=== PATIENT | female | born 1970 | race African-American/Black ===

== ENCOUNTER 2017-08-22 12:11 | Emergency (ER) | payer OTHER ==
[2017-08-22 12:45] VITALS: TEMP 99.2; BMI 28.0
--- NOTE | 2017-08-22 13:58 | PDOC ---
Attending Attestation - Resident Resident Name: Alpa Evangelista - HPI HPI: 08/23/17 18:49 Pt presents to the ED complaining of a typical sickle cell crisis with bilateral arm pain. also complains of fever that she states has now resolved. Denies chest pain, shortness of breat, nausea, vomiting or abdominal pain. - Physicial Exam PE: 08/23/17 18:53 Agree with resident exam. PAtient is well appearing and in no acute distress. Lungs are clear. - Medical Decision Making 08/23/17 18:53 Pt presents to the ED complaining of typical sickle cell crisis. Requested demerol. Informed about the high side effect profile of demerol, but refused because " only demerol works". Plan was to check labs to rule out aplastic crisis, but patient refused. understood the risk of severe anemia and aplastic crisis. patient promises to return to the ed for new or worsening symptoms.
--- NOTE | 2017-08-22 14:00 | PDOC ---
History of Present Illness - General Chief Complaint: Pain Stated Complaint: SICKLE CELL CRISIS Time Seen by Provider: 08/22/17 13:58 History Source: Patient - History of Present Illness Initial Comments: 08/22/17 20:53 Patient is a 47 y.o. female with a PMH of SCD who presents to our ED c/o B/L RUE pain consistent with her sickle cell pain. Patient states she is allergic to Morphine ("my throat closes") and she takes Demerol (75 mg) and Benadryl (50 mg) for her pain. Patient denies any chest pain, dyspnea. Past History - Past Medical History Allergies/Adverse Reactions: Allergies Allergy/AdvReac Type Severity Reaction Status Date / Time morphine Allergy Severe ANAPHYLAXIS, Verified 07/03/15 09:14 HIVES Home Medications: Ambulatory Orders FENTANYL 100mcg PATCH [DURAGESIC 100mcg PATCH -] 200 mg TD Q72H 02/19/15 Oxycodone HCl/Acetaminophen [Percocet 5-325 mg Tablet] 1 - 2 tab PO Q6H PRN #12 tab 02/26/15 Docusate Sodium [Colace -] 100 mg PO BID PRN #60 capsule 04/20/15 Cephalexin [Keflex] 500 mg PO BID #14 capsule 07/03/15 Anemia: Yes (SICKLE CELL) Asthma: No Cancer: No Cardiac Disorders: No CVA: No COPD: No CHF: No DVT: No Dementia: No Diabetes: No GI Disorders: No Disorders: No HTN: No Hypercholesterolemia: No Liver Disease: No Seizures: No Thyroid Disease: No - Surgical History Abdominal Surgery: Yes Cholecystectomy: Yes - Family Disease History Family Disease History: Other: Mother (Sickle cell) - Immunization History Td Vaccination: Yes TDAP Vaccination: Yes Immunization Up to Date: Yes - Suicide/Smoking/Psychosocial Hx Smoking Status: No Smoking History: Never smoked Years of Tobacco Use: 0 Have you smoked in the past 12 months: No Number of Cigarettes Smoked Daily: 0 Cigars Per Day: 0 Information on smoking cessation initiated: No Hx Alcohol Use: No Drug/Substance Use Hx: No Substance Use Type: None Hx Substance Use Treatment: No Review of Systems - Review of Systems Constitutional: No: Chills, Fever Respiratory: No: Shortness of Breath Cardiac (ROS): No: Chest Pain ABD/GI: No: Constipated, Diarrhea, Nausea, Vomiting, Abdominal cramping Musculoskeletal: Yes: Muscle Pain *Physical Exam - Vital Signs Last Vital Signs Temp Pulse Resp BP Pulse Ox 99.2 F 106 H 18 124/70 100 08/22/17 12:40 08/22/17 12:40 08/22/17 12:40 08/22/17 12:40 08/22/17 12:40 - Physical Exam General Appearance: Yes: Nourished, Appropriately Dressed HEENT: positive: EOMI, MICHEAL, Other (edentulous w/cracked teeth; oral (likely Herpetic) lesion ) Neck: positive: Trachea midline, Supple Respiratory/Chest: positive: Lungs Clear Cardiovascular: positive: S1, S2 Medical Decision Making - Medical Decision Making 08/22/17 20:55 Patient is a 47 y.o. female who presents with sickle cell pain. Afebrile w/ no cough/chest pain/dyspnea - low clinical suspicion for acute chest. Of note patient has no sickle cell screen in our EMR. Patient refuses lab work and is counseled that she should stay for full evaluation including determination of whether patient is in active crisis. Patient counseled on risks of leaving prior to full evaluation and discharged home with return precautions. *DC/Admit/Observation/Transfer Diagnosis at time of Disposition: Sickle cell anemia with pain - Discharge Dispostion Disposition: HOME Condition at time of disposition: Good Admit: No - Referrals - Patient Instructions Printed Discharge Instructions: DI for Sickle Cell Anemia, Pain Crisis -- Adult Additional Instructions: Please return to the Emergency Department for any new/worsening/concerning symptoms. - Post Discharge Activity
[2017-08-22] MEDS ORDERED: MEPERIDINE HCL CARPU-JECT 75 MG/1 ML DISP.SYRIN IM ONE ×2 (14:06→14:14)
[2017-08-22] MEDS ORDERED: MEPERIDINE HCL CARPU-JECT 50 MG/1 ML DISP.SYRIN ONE (14:25)
[2017-08-22 15:36] VITALS: BP 120/70; PULSE 80
== END 2017-08-22 15:27 | disposition home or self-care (01) ==
LOC: JER 12:11
PROC: 3E023NZ Introduction of Analgesics, Hypnotics, Sedatives into Muscle, Percutaneous Approach (ICD-10-PCS; principal; 2017-08-22)
PROC: 3E023GC Introduction of Other Therapeutic Substance into Muscle, Percutaneous Approach (ICD-10-PCS; 2017-08-22)
DX: D57.00 Hb-SS disease with crisis, unspecified (principal)
CPT/HCPCS: 96372; 99282-25

== ENCOUNTER 2017-10-26 14:34 | Emergency (ER) | payer OTHER ==
[2017-10-26 15:03] VITALS: BP 124/90; PULSE 73; TEMP 98.7; BMI 27.0
--- NOTE | 2017-10-26 15:34 | PDOC ---
History of Present Illness - History of Present Illness Initial Comments: 10/26/17 16:11 Patient is a 47F, with PMHx significant for sickle cell anemia, who presents for sickle cell crisis. Patient states that around 4 am she began experiencing pain in her extremities including her shoulder, elbow, hip, and knee joints. She states that her symptoms are typical of her sickle cell pain crsis. She describes her pain as sharp, constant, rates 9/10. She states she took Oxycodone 30 mg 3 tablets with little relief. She states Demerol and Benadryl has helped her before. She also reported 2 days of associated burning when she urinates as well as foul smelling urining .She states she had some mild abdominal pain yesterday but it has since resolved. She denies any chest pain, shortness of breath, headache, vision changes, numbness/tingling/weakness, abdominal pain, nausea, vomiting, blood in urine or stool. She states she is up- to-date with her pneumoia vaccine, has not had her flu shot. Social Hx: Former smoker Surgical Hx: cholecystectomy, left hip replacement - 2004 Allergies: morphine (anaphylaxis, hives <Yola Rede - Last Filed: 10/26/17 16:11> <Emery Goodson - Last Filed: 10/26/17 16:23> <Lupe Guidry - Last Filed: 10/26/17 19:13> - General Chief Complaint: Pain Stated Complaint: SICKLE CELL Time Seen by Provider: 10/26/17 14:39 Past History <Yola Reed - Last Filed: 10/26/17 16:11> - Past Medical History Anemia: Yes (SICKLE CELL) Asthma: No Cancer: No Cardiac Disorders: No CVA: No COPD: No CHF: No DVT: No Dementia: No Diabetes: No GI Disorders: No Disorders: No HTN: No Hypercholesterolemia: No Liver Disease: No Seizures: No Thyroid Disease: No - Surgical History Abdominal Surgery: Yes Cholecystectomy: Yes - Family Disease History Family Disease History: Other: Mother (Sickle cell) - Immunization History Td Vaccination: Yes TDAP Vaccination: Yes Immunization Up to Date: Yes - Suicide/Smoking/Psychosocial Hx Smoking Status: No Smoking History: Never smoked Years of Tobacco Use: 0 Have you smoked in the past 12 months: No Number of Cigarettes Smoked Daily: 0 Cigars Per Day: 0 Information on smoking cessation initiated: No Hx Alcohol Use: No Drug/Substance Use Hx: No Substance Use Type: None Hx Substance Use Treatment: No <KelleeEmery kelley - Last Filed: 10/26/17 16:23> <ChaoLupe Valenzuela - Last Filed: 10/26/17 19:13> - Past Medical History Allergies/Adverse Reactions: Allergies Allergy/AdvReac Type Severity Reaction Status Date / Time morphine Allergy Severe ANAPHYLAXIS, Verified 07/03/15 09:14 HIVES Home Medications: Ambulatory Orders FENTANYL 100mcg PATCH [DURAGESIC 100mcg PATCH -] 200 mg TD Q72H 02/19/15 Oxycodone HCl/Acetaminophen [Percocet 5-325 mg Tablet] 1 - 2 tab PO Q6H PRN #12 tab 02/26/15 Docusate Sodium [Colace -] 100 mg PO BID PRN #60 capsule 04/20/15 Cephalexin [Keflex] 500 mg PO BID #14 capsule 07/03/15 Review of Systems - Review of Systems Comments:: 10/26/17 16:11 CONSTITUTIONAL: No reported: Fever, Chills, Diaphoresis, Generalized Weakness, Malaise, Loss of Appetite HEENT: No reported: Rhinorrhea, Nasal Congestion, Throat Pain, Throat Swelling, Difficulty Swallowing, Mouth Swelling, Ear Pain, Eye Pain, Visual Changes CARDIOVASCULAR: No reported: Chest Pain, Syncope, Palpitations, Irregular Heart Rate, Lightheadedness, Peripheral Edema RESPIRATORY: No reported: Cough, Shortness of Breath, SOB with Exertion, Orthopnea, Wheezing , Stridor, Hemoptysis GASTROINTESTINAL: Reported: abdominal pain (yesterday- resolved) No reported: Abdominal Distension, Nausea, Vomiting, Diarrhea, Constipation, Melena, Hematochezia GENITOURINARY: Reported: dysuria, foul smelling urine No reported: Frequency, Urgency, Hesitancy, Flank Pain, Genital Pain MUSCULOSKELETAL: Reported: joint pain (b/l knee, elbow, shoulder, hip) No reported: Myalgia, Back pain, Neck Pain SKIN: No reported: Rash, Itching, Pallor HEMEATOLOGIC/IMMUNOLOGIC: No reported: Easy Bleeding, Easy Bruising, Lymphadenopathy, Frequent infections ENDOCRINE: No reported: Unexplained Weight Gain, Unexplained Weight Loss, Heat Intolerance , Cold Intolerance NEUROLOGIC: No reported: Headache, Focal Weakness, Paresthesias, Vertigo, Lightheadedness, Unsteady Gait, Seizure, Mental Status Changes, Incontinence PSYCHIATRIC: No reported: Anxiety, Depression <Yola Reed - Last Filed: 10/26/17 16:11> *Physical Exam - Vital Signs Last Vital Signs Temp Pulse Resp BP Pulse Ox 98.7 F 73 20 124/90 94 L 10/26/17 15:01 10/26/17 15:01 10/26/17 15:01 10/26/17 15:01 10/26/17 15:01 - Physical Exam Comments: 10/26/17 16:11 GENERAL: The patient is awake, alert, and fully oriented, Nontoxic - in no acute distress. HEAD: Normocephalic, atraumatic. EYES: extraocular movements intact, sclera anicteric, conjunctiva clear. ENT: Normal voice, Moist mucous membranes. NECK: Normal range of motion, supple LUNGS: Breath sounds equal, clear to auscultation bilaterally. No wheezes, no rhonchi, no rales. HEART: Regular rate and rhythm, without murmur, rub or gallop. ABDOMEN: Soft, nontender, normoactive bowel sounds. No guarding, no rebound.No CVA tenderness EXTREMITIES: Normal range of motion, no edema. No clubbing or cyanosis. No cords, erythema, or tenderness. NEUROLOGICAL: No facial assymetry, Normal speech, PSYCH: Normal mood, normal affect. SKIN: Warm, Dry, normal turgor <Yola Reed - Last Filed: 10/26/17 16:11> - Vital Signs Last Vital Signs Temp Pulse Resp BP Pulse Ox 98.7 F 73 20 124/90 94 L 10/26/17 15:01 10/26/17 15:01 10/26/17 15:01 10/26/17 15:01 10/26/17 15:01 <Emery Goodson - Last Filed: 10/26/17 16:23> - Vital Signs Last Vital Signs Temp Pulse Resp BP Pulse Ox 98.7 F 73 20 124/90 94 L 10/26/17 15:01 10/26/17 15:01 10/26/17 15:01 10/26/17 15:01 10/26/17 15:01 <Lupe Guidry - Last Filed: 10/26/17 19:13> ED Treatment Course - Medications Given in the ED: ED Medications Discontinued Medications Generic Name Dose Route Start Last Admin Trade Name Melo PRN Reason Stop Dose Admin Diphenhydramine HCl 25 mg 10/26/17 16:05 10/26/17 16:20 Benadryl Injection - IM 10/26/17 16:06 25 mg ONCE ONE Administration Diphenhydramine HCl 25 mg 10/26/17 17:54 10/26/17 18:03 Benadryl Injection - IM 10/26/17 17:55 25 mg ONCE ONE Administration Sodium Chloride 1,000 mls @ 1,000 mls/hr 10/26/17 15:35 10/26/17 16:48 Normal Saline - IV 10/26/17 16:34 Not Given .Q1H ONE Meperidine HCl 50 mg 10/26/17 15:51 10/26/17 16:20 Demerol Injection - IM 10/26/17 15:52 50 mg ONCE ONE Administration Meperidine HCl 50 mg 10/26/17 17:53 10/26/17 18:02 Demerol Injection - IM 10/26/17 17:54 50 mg ONCE ONE Administration <Lupe Guidry - Last Filed: 10/26/17 19:13> Medical Decision Making - Medical Decision Making 10/26/17 15:32 47y F hx of SS (was on hydroxyurea, but stopped it), avn hips, presents wtih shoulder/elbow/hip joints (c/w prior sickle cell pain crisis), started this morning, took oxycodone without improvement. Pt also has been having dysuria. No chest pain, shortness of breath, cough, fever/chills, headache, dizziness. original sat at triage was 93% on RA, was repeated was 97% ddx likely pain crsis will give her her demerol will ck labs cxr low suspicion of acute chest without any cmplaints 10/26/17 16:23 The patient's chest x-ray appears clear with no signs of infiltrate. <Emery Goodson - Last Filed: 10/26/17 16:23> *DC/Admit/Observation/Transfer - Attestations Scribe Attestion: 10/26/17 16:11 Documentation prepared by Yola Reed, acting as emergency medical services coordinator for Emery Goodson MD. <Yola Reed - Last Filed: 10/26/17 16:11> <Emery Goodson - Last Filed: 10/26/17 16:23> <ChaoLupe Valenzuela - Last Filed: 10/26/17 19:13> Diagnosis at time of Disposition: Sickle cell pain crisis Sickle cell disease Qualifiers: Sickle-cell associated disorders: with unspecified crisis Qualified Code(s): D57.00 - Hb-SS disease with crisis, unspecified; D57.0 - Hb-SS disease with crisis Arthralgia Qualifiers: Joint pain location: shoulder Laterality: bilateral Qualified Code(s): M25.511 - Pain in right shoulder; M25.512 - Pain in left shoulder; M25.512 - Pain in left shoulder - Discharge Dispostion Disposition: HOME Condition at time of disposition: Stable - Patient Instructions Printed Discharge Instructions: DI for Sickle Cell Anemia, Pain Crisis -- Adult Additional Instructions: please follow up with your physician
[2017-10-26] MEDS ORDERED: SODIUM CHLORIDE 1,000 ML IV ONE (15:35)
[2017-10-26] MEDS ORDERED: MEPERIDINE HCL CARPU-JECT 50 MG/1 ML DISP.SYRIN IM ONE ×2 (15:51→17:53)
[2017-10-26] MEDS ORDERED: MEPERIDINE HCL CARPU-JECT 50 MG/1 ML DISP.SYRIN ONE ×2 (16:11→17:58)
[2017-10-26] MEDS ORDERED: fentaNYL 100mcg/hr PATCH.TD72 TD STA (19:31)
[2017-10-26] MEDS ORDERED: fentaNYL 100mcg/hr PATCH.TD72 ONE (19:31)
== END 2017-10-26 19:41 | disposition home or self-care (01) ==
LOC: JER 14:34
PROC: 3E023NZ Introduction of Analgesics, Hypnotics, Sedatives into Muscle, Percutaneous Approach (ICD-10-PCS; principal; 2017-10-26)
PROC: 3E023NZ Introduction of Analgesics, Hypnotics, Sedatives into Muscle, Percutaneous Approach (ICD-10-PCS; 2017-10-26)
PROC: 3E023GC Introduction of Other Therapeutic Substance into Muscle, Percutaneous Approach (ICD-10-PCS; 2017-10-26)
PROC: 3E023GC Introduction of Other Therapeutic Substance into Muscle, Percutaneous Approach (ICD-10-PCS; 2017-10-26)
DX: D57.00 Hb-SS disease with crisis, unspecified (principal); M25.522 Pain in left elbow; M25.521 Pain in right elbow; M25.551 Pain in right hip; M25.511 Pain in right shoulder; M25.512 Pain in left shoulder; M25.561 Pain in right knee; M25.562 Pain in left knee; Z87.891 Personal history of nicotine dependence; Z96.642 Presence of left artificial hip joint
CPT/HCPCS: 71045-TC-FY; 96372; 99282-25

== ENCOUNTER 2017-11-08 12:37 | Emergency (ER) | payer OTHER ==
[2017-11-08 12:43] VITALS: BP 123/69; PULSE 90; BMI 28.0
--- NOTE | 2017-11-08 13:41 | PDOC ---
History of Present Illness - General Chief Complaint: Sickle Cell Crisis Stated Complaint: SICKLE CELL/Fever/pain History Source: Patient - History of Present Illness Associated Symptoms: reports: fever/chills. denies: chest pain, cough, headaches, nausea/vomiting, shortness of breath Past History - Past Medical History Allergies/Adverse Reactions: Allergies Allergy/AdvReac Type Severity Reaction Status Date / Time morphine Allergy Severe ANAPHYLAXIS, Verified 11/08/17 12:43 HIVES Home Medications: Ambulatory Orders FENTANYL 100mcg PATCH [DURAGESIC 100mcg PATCH -] 200 mg TD Q72H 02/19/15 Oxycodone HCl/Acetaminophen [Percocet 5-325 mg Tablet] 1 - 2 tab PO Q6H PRN #12 tab 02/26/15 Docusate Sodium [Colace -] 100 mg PO BID PRN #60 capsule 04/20/15 Cephalexin [Keflex] 500 mg PO BID #14 capsule 07/03/15 FENTANYL 25mcg PATCH [DURAGESIC 25mcg PATCH -] 100 patch TD Q72H PRN #1 patch.td72 MDD 1 10/26/17 HYDROmorphone [Dilaudid -] 2 mg PO Q6H #4 tablet MDD 8mg 11/08/17 Nitrofurantoin Monohyd/M-Cryst [Macrobid -] 100 mg PO BID #13 capsule 11/08/17 Anemia: Yes (SICKLE CELL) Asthma: No Cancer: No Cardiac Disorders: No CVA: No COPD: No CHF: No DVT: No Dementia: No Diabetes: No GI Disorders: No Disorders: No HTN: No Hypercholesterolemia: No Liver Disease: No Seizures: No Thyroid Disease: No - Surgical History Abdominal Surgery: Yes Cholecystectomy: Yes - Family Disease History Family Disease History: Other: Mother (Sickle cell) - Immunization History Td Vaccination: Yes TDAP Vaccination: Yes Immunization Up to Date: Yes - Suicide/Smoking/Psychosocial Hx Smoking Status: No Smoking History: Never smoked Years of Tobacco Use: 0 Have you smoked in the past 12 months: No Number of Cigarettes Smoked Daily: 0 Cigars Per Day: 0 Information on smoking cessation initiated: No Hx Alcohol Use: No Drug/Substance Use Hx: No Substance Use Type: None Hx Substance Use Treatment: No Review of Systems - Review of Systems Constitutional: Yes: Chills, Fever Respiratory: No: Cough, Shortness of Breath Cardiac (ROS): No: Chest Pain ABD/GI: No: Nausea, Vomiting : Yes: Dysuria. No: Discharge, Frequency, Flank Pain, Hematuria Musculoskeletal: Yes: Back Pain *Physical Exam - Vital Signs Last Vital Signs Temp Pulse Resp BP Pulse Ox 98.7 F 90 18 123/69 95 11/08/17 12:39 11/08/17 12:39 11/08/17 12:39 11/08/17 12:39 11/08/17 12:39 - Physical Exam General Appearance: Yes: Appropriately Dressed, Mild Distress HEENT: positive: Normal Voice Neck: positive: Supple Respiratory/Chest: positive: Lungs Clear, Normal Breath Sounds. negative: Respiratory Distress Cardiovascular: positive: Regular Rate, S1, S2 Gastrointestinal/Abdominal: positive: Soft. negative: Tender Musculoskeletal: negative: CVA Tenderness Integumentary: positive: Dry, Warm Neurologic: positive: Fully Oriented, Alert, Normal Mood/Affect ED Treatment Course - LABORATORY CBC & Chemistry Diagram: 11/08/17 14:32 11/08/17 14:32 - RADIOLOGY Radiology Studies Ordered: Category Date Time Status CHEST PA & LAT [RAD] Stat Radiology 11/08/17 13:34 Ordered Medical Decision Making - Medical Decision Making 11/08/17 13:41 47-year-old female, history of sickle cell disease on oxycodone at home, AVN hips, multiple transfusions in the past, no h/o acute chest, presents with lower back and bilateral lower extremity pain 3 days, consistent with her crisis. States oxycodone not helping at home. No recent trauma. States she is usually given IM Demerol and Benadryl (for itching) in ER. Also reports dysuria with foul-smelling urine 2 days w/ possible fever/chills Denies flank pain, nausea or vomiting. No chest pain or shortness of breath at this time. Patient states she follows up with hem/onx in the [place] but now has an appointment next month with [facility] in [place] where patient currently resides See exam SSD w/ usual pain crises on oxycodone w/ no relief -pain control -labs Dysuria Afebrile w/ no CVAT -ua/cx pending 11/08/17 14:04 Pt states she is a very hard stick and declines IV placement at this time. [facility] for labs and administer Demerol IM. 11/08/17 15:41 Lab w/ multiple abnormalities including hemoglobin of 7.5, but based on patient' s chart review, baseline is 7-8. Reticulocyte count of 15 and Tbili of 5, similar to in the past. Patient reports that pain has now resolved with demerol. Refusing IV fluids in the ER. Case discussed with ED attending, who agrees with 1-2 tablets of dilaudid to go home with (pt states she is allergic to morphine but has taken dilaudid several times in the past w/ no adverse effects). Will also send home with macrobid for UTI (prior sensitivities reviewed). Pt strongly encouraged to follow up with her current hem/onc this week. Reasons to return discussed with patient *DC/Admit/Observation/Transfer Diagnosis at time of Disposition: Sickle cell pain crisis UTI (urinary tract infection) Qualifiers: Urinary tract infection type: acute cystitis Hematuria presence: without hematuria Qualified Code(s): N30.00 - Acute cystitis without hematuria - Discharge Dispostion Disposition: HOME Condition at time of disposition: Improved - Prescriptions Prescriptions: HYDROmorphone [Dilaudid -] 2 mg PO Q6H #4 tablet MDD 8mg Nitrofurantoin Monohyd/M-Cryst [Macrobid -] 100 mg PO BID #13 capsule - Referrals - Patient Instructions Printed Discharge Instructions: Urinary Tract Infection, DI for Sickle Cell Anemia, Pain Crisis -- Adult Additional Instructions: Use Dilaudid sparingly for severe pain as needed. Take Macrobid as instructed for UTI. If symptoms worsen, return to ER immediately, otherwise follow-up with your current trimming operator this week - Post Discharge Activity
[2017-11-08] MEDS ORDERED: MEPERIDINE HCL CARPU-JECT 50 MG/1 ML DISP.SYRIN IM ONE ×2 (13:51→15:10)
[2017-11-08] MEDS ORDERED: diphenhydrAMINE HCL 50 MG CAPSULE PO ONE (13:51)
[2017-11-08] MEDS ORDERED: MEPERIDINE HCL CARPU-JECT 50 MG/1 ML DISP.SYRIN ONE ×2 (14:09→15:18)
[2017-11-08] MEDS ORDERED: diphenhydrAMINE HCL 25 MG CAPSULE (FP) PO ONE (14:10)
[2017-11-08 14:22] LABS: URINE APPEARANCE CLOUDY; URINE BILIRUBIN NEGATIVE (<2.0 mg/dL); URINE BLOOD 1+ (NEGATIVE); URINE COLOR AMBER; URINE GLUCOSE (UA) NEGATIVE (NEGATIVE); URINE KETONE NEGATIVE (NEGATIVE); URINE NITRITE NEGATIVE (NEGATIVE); URINE UROBILINOGEN 4.0 E.U/dl mg/dL (0.2-1.0)
[2017-11-08 14:24] LABS: URINE LEUK ESTERASE 3+ (NEGATIVE); URINE PROTEIN 1+ (NEGATIVE)
[2017-11-08] MEDS ORDERED: PHENAZOPYRIDINE HCL 100 MG TABLET (FP) PO ONE (14:29)
[2017-11-08] MEDS ORDERED: NITROFURANTOIN MACROCRYSTAL 50 MG CAPSULE (FP) PO SCH (14:30)
[2017-11-08] MEDS ORDERED: PHENAZOPYRIDINE HCL 100 MG TABLET (FP) ONE (14:32)
[2017-11-08] MEDS ORDERED: NITROFURANTOIN MACROCRYSTAL 50 MG CAPSULE (FP) ONE (14:32)
[2017-11-08 14:38] LABS: EPI CELLS FEW /HPF (FEW); URINE BACTERIA FEW /hpf (NONE SEEN); URINE MUCUS RARE
[2017-11-08 15:17] LABS: ALBUMIN 4.3 g/dl (3.4-5.0); ANION GAP 14 (8-16); BLOOD UREA NITROGEN 6 mg/dL (7-18); CALCIUM 8.9 mg/dL (8.5-10.1); CHLORIDE 103 mmol/L (98-107); CO2 24 mmol/L (21-32); CREATININE 0.8 mg/dL (0.55-1.02); GLUCOSE,RANDOM 176 mg/dL (74-106); SGPT/ALT 15 U/L (12-78); SODIUM 141 mmol/L (136-145)
[2017-11-08 15:21] LABS: ALK PHOS 88 U/L (45-117); TOT PROT 7.9 g/dl (6.4-8.2)
[2017-11-08 15:22] LABS: POTASSIUM 4.1 mmol/L (3.5-5.1)
[2017-11-08 15:25] LABS: SGOT/AST 40 U/L (15-37)
[2017-11-08 15:26] LABS: BILIRUBIN,TOTAL 5.4 mg/dL (0.2-1.0); HEMATOCRIT 21.3 % (32.4-45.2); HEMOGLOBIN 7.5 GM/dL (10.7-15.3); MCH 29.8 pg (25.7-33.7); MEAN CELL VOLUME 85.1 fl (80-96); MEAN PLT VOLUME 8.1 fl (7.5-11.1); PLATELET COUNT 280 K/MM3 (134-434); RBC 2.51 M/mm3 (3.60-5.2); RDW 26.7 % (11.6-15.6)
[2017-11-08 15:29] LABS: RETICULOCYTES 15.97 % (0.5-1.5)
[2017-11-08] MEDS: SODIUM CHLORIDE 1,000 ML IV STA ×2 (15:39→15:55)
[2017-11-08 16:11] VITALS: TEMP 98.8
[2017-11-08 16:11] LABS: ANISOCYTOSIS 3+; MACROCYTOSIS 2+; PLATELET ESTIMATE NORMAL; SICKELED CELLS 3+; TARGET CELLS 3+
--- NOTE | 2017-11-09 09:01 | EKG ---
Test Reason : Blood Pressure : / mmHG Vent. Rate : 087 BPM Atrial Rate : 087 BPM P-R Int : 156 ms QRS Dur : 080 ms QT Int : 364 ms P-R-T Axes : 049 041 105 degrees QTc Int : 438 ms NORMAL SINUS RHYTHM NONSPECIFIC T WAVE ABNORMALITY ABNORMAL ECG WHEN COMPARED WITH ECG OF 15-OCT-2014 10:41, INVERTED T WAVES HAVE REPLACED NONSPECIFIC T WAVE ABNORMALITY IN LATERAL LEADS Confirmed by HERMAN ENAMORADO, DARRICK ([id number]) on 11/09/2017 9:01:25 AM Referred By: Confirmed By:DARRICK SUTTON MD
== END 2017-11-08 16:11 | disposition home or self-care (01) ==
LOC: JER 12:37
PROC: 3E033NZ Introduction of Analgesics, Hypnotics, Sedatives into Peripheral Vein, Percutaneous Approach (ICD-10-PCS; principal; 2017-11-08)
PROC: 3E033NZ Introduction of Analgesics, Hypnotics, Sedatives into Peripheral Vein, Percutaneous Approach (ICD-10-PCS; 2017-11-08)
DX: D57.00 Hb-SS disease with crisis, unspecified (principal); N39.0 Urinary tract infection, site not specified
CPT/HCPCS: 36415; 80053; 81003; 81015; 82550; 84484; 84703; 85025; 85044; 87086; 87186; 93005; 93010; 96372; 99285-25; J7030

== ENCOUNTER 2018-01-07 21:56 | Emergency (ER) | payer OTHER ==
[2018-01-07 22:08] VITALS: BMI 28.0
--- NOTE | 2018-01-07 22:08 | PDOC ---
Rapid Medical Evaluation Chief Complaint: Pain, Acute Time Seen by Provider: 01/07/18 22:03 Medical Evaluation: Allergies Allergy/AdvReac Type Severity Reaction Status Date / Time morphine Allergy Severe ANAPHYLAXIS, Verified 12/02/17 20:26 HIVES 01/07/18 22:03 47 year old female with b/l lower extremity and upper extremity pain. no chest pain, no fever took oxycodone at 1pm woth no relief in pain. history of sickle cell disease PE: patient alert ox3. A: sickle cell crisis P: labs patient to the ER for further management of care.
--- NOTE | 2018-01-07 22:25 | PDOC ---
History of Present Illness - General Chief Complaint: Sickle Cell Crisis Stated Complaint: SICKLE CELL CRISIS Time Seen by Provider: 01/07/18 22:03 History Source: Patient - History of Present Illness Initial Comments: 01/07/18 22:32 47yo F with significant history of sickle cell anemia with multiple visits to the ED requesting pain management. patient reports suprapubic pain and dysuria. denies flank pain, fever/ chills, cough, chest congestion. patient is pending sickle cell clinic appointment at [facility] tomorrow. Past History - Past Medical History Allergies/Adverse Reactions: Allergies Allergy/AdvReac Type Severity Reaction Status Date / Time morphine Allergy Severe ANAPHYLAXIS, Verified 01/31/18 09:00 HIVES Home Medications: Ambulatory Orders Oxycodone HCl 90 mg PO Q4H 11/15/17 Nitrofurantoin Monohyd/M-Cryst [Macrobid -] 100 mg PO BID #14 capsule 01/31/18 Anemia: Yes (SICKLE CELL) Asthma: No Cancer: No Cardiac Disorders: No CVA: No COPD: No CHF: No DVT: No Dementia: No Diabetes: No GI Disorders: No Disorders: No HTN: No Hypercholesterolemia: No Liver Disease: No Seizures: No Thyroid Disease: No - Surgical History Abdominal Surgery: Yes Cholecystectomy: Yes - Family Disease History Family Disease History: Other: Mother (Sickle cell) - Immunization History Td Vaccination: Yes TDAP Vaccination: Yes Immunization Up to Date: Yes - Suicide/Smoking/Psychosocial Hx Smoking Status: No Smoking History: Never smoked Years of Tobacco Use: 0 Have you smoked in the past 12 months: No Number of Cigarettes Smoked Daily: 0 Cigars Per Day: 0 Information on smoking cessation initiated: No Hx Alcohol Use: No Drug/Substance Use Hx: No Substance Use Type: None Hx Substance Use Treatment: No Review of Systems - Review of Systems Able to Perform ROS?: Yes Is the patient limited Mozambican proficient: No *Physical Exam - Vital Signs Last Vital Signs Temp Pulse Resp BP Pulse Ox 99.2 F 100 H 16 142/56 94 L 01/07/18 22:03 01/07/18 22:03 01/07/18 22:03 01/07/18 22:03 01/07/18 22:03 - Physical Exam General Appearance: Yes: Appropriately Dressed Respiratory/Chest: positive: Lungs Clear, Normal Breath Sounds Cardiovascular: positive: Regular Rhythm, Regular Rate Gastrointestinal/Abdominal: positive: Normal Bowel Sounds, Soft Musculoskeletal: positive: Normal Inspection Extremity: positive: Normal Capillary Refill, Normal Inspection, Normal Range of Motion Integumentary: positive: Normal Color, Dry, Warm Neurologic: positive: Fully Oriented, Alert, Normal Mood/Affect ED Treatment Course - LABORATORY CBC & Chemistry Diagram: 01/08/18 00:19 01/08/18 00:28 - RADIOLOGY Radiology Studies Ordered: Category Date Time Status CHEST PA & LAT [RAD] Stat Radiology 01/07/18 22:07 Ordered Medical Decision Making - Medical Decision Making A: sickle cell crisis; UTI P: pain control labs UA antibiotics 01/08/18 00:29 patient is requesting more pain medication, labs drawn to r/o acute crisis. will give dose # 2 and reevaluate. if 01/08/18 patient is requesting to sign AMA has appointment with [facility] sickle cell clinic. strict return precautions Note: The patient insists on leaving the emergency dept and is signing out against medical advice. The patient understands the risks and complications that may result from the refusal of medical care and admission which includes and permanent disability. The patient has the mental capacity of understanding the risks of refusing care and is capable of making an informed decision. The patient was instructed to return to the emergency department should [] change [] mind regarding medical care or should [] condition worsen. The patient signed the Against Medical Advice form. *DC/Admit/Observation/Transfer Diagnosis at time of Disposition: Sickle cell crisis UTI (urinary tract infection) Qualifiers: Urinary tract infection type: acute cystitis Hematuria presence: without hematuria Qualified Code(s): N30.00 - Acute cystitis without hematuria - Discharge Dispostion Disposition: AGAINST MEDICAL ADVICE Condition at time of disposition: Unchanged/Unknown - Referrals - Patient Instructions Printed Discharge Instructions: DI for Sickle Cell Anemia, Pain Crisis -- Adult Additional Instructions: please follow up in sickle cell clinic tomorrow. take cefuroxime as prescribed. return to the ER if symptoms worsen. - Post Discharge Activity
[2018-01-07] MEDS ORDERED: MEPERIDINE HCL CARPU-JECT 75 MG/1 ML DISP.SYRIN IM ONE (22:35)
[2018-01-07] MEDS ORDERED: diphenhydrAMINE HCL 25 MG CAPSULE (FP) PO ONE ×2 (22:38→23:01)
[2018-01-07] MEDS ORDERED: MEPERIDINE HCL CARPU-JECT 50 MG/1 ML DISP.SYRIN IM ONE (22:40)
[2018-01-07] MEDS ORDERED: MEPERIDINE HCL CARPU-JECT 50 MG/1 ML DISP.SYRIN ONE (23:00)
[2018-01-07 23:11] LABS: URINE APPEARANCE CLEAR; URINE BILIRUBIN NEGATIVE (<2.0 mg/dL); URINE COLOR DKYELLOW; URINE GLUCOSE (UA) NEGATIVE (NEGATIVE); URINE KETONE NEGATIVE (NEGATIVE); URINE NITRITE NEGATIVE (NEGATIVE); URINE UROBILINOGEN 4.0 E.U/dl mg/dL (0.2-1.0)
[2018-01-07 23:12] LABS: URINE LEUK ESTERASE 2+ (NEGATIVE); URINE PROTEIN 1+ (NEGATIVE)
[2018-01-07 23:26] LABS: HCG,QUALITATIVE URINE NEGATIVE
[2018-01-07 23:28] LABS: EPI CELLS RARE /HPF (FEW); URINE BACTERIA RARE /hpf (NONE SEEN); URINE MUCUS RARE
[2018-01-07 23:34] VITALS: BP 123/59; PULSE 94; TEMP 99.4
[2018-01-08] MEDS ORDERED: MAG HYDROX/AL HYDROX/SIMETH 30 ML UNIT-DOSE CUP PO ONE (00:10)
[2018-01-08] MEDS ORDERED: MEPERIDINE HCL CARPU-JECT 50 MG/1 ML DISP.SYRIN IM ONE (00:23)
[2018-01-08] MEDS ORDERED: MEPERIDINE HCL CARPU-JECT 50 MG/1 ML DISP.SYRIN ONE (00:46)
[2018-01-08] MEDS ORDERED: MAG HYDROX/AL HYDROX/SIMETH 30 ML UNIT-DOSE CUP ONE (00:46)
[2018-01-08 00:59] LABS: EOS % 0.6 % (0-4.5); HEMOGLOBIN 7.3 GM/dL (10.7-15.3)
--- NOTE | 2018-01-08 01:17 | PDOC ---
*Physical Exam - Vital Signs Last Vital Signs Temp Pulse Resp BP Pulse Ox 99.4 F 94 H 18 123/59 95 01/07/18 23:33 01/07/18 23:33 01/07/18 23:33 01/07/18 23:33 01/07/18 23:33 - Physical Exam Comments: 01/08/18 01:13 gen: aaox3, nad c/o sickle cell pain, but does not appear in acute distress ambulatory in the ED with a steady gait ED Treatment Course - LABORATORY CBC & Chemistry Diagram: 01/08/18 00:28 - ADDITIONAL ORDERS Additional order review: Laboratory Results 01/07/18 23:00 Urine Color Dkyellow Urine Appearance Clear Urine pH 6.0 Ur Specific Gordon 1.011 Urine Protein 1+ H Urine Glucose (UA) Negative Urine Ketones Negative Urine Blood 1+ H Urine Nitrite Negative Urine Bilirubin Negative Urine Urobilinogen 4.0 e.u/dl H Ur Leukocyte Esterase 2+ H Urine WBC (Auto) 24 Urine RBC (Auto) 3 Ur Epithelial Cells Rare Urine Bacteria Rare Urine Mucus Rare Urine HCG, Qual Negative - Medications Given in the ED: ED Medications Discontinued Medications Generic Name Dose Route Start Last Admin Trade Name Freq PRN Reason Stop Dose Admin Al Hydroxide/Mg Hydroxide 30 ml 01/08/18 00:10 01/08/18 00:53 Mylanta Oral Suspension - PO 01/08/18 00:11 30 ml ONCE ONE Administration Diphenhydramine HCl 25 mg 01/07/18 22:35 01/07/18 23:39 Benadryl Injection - IM 01/07/18 22:36 Not Given ONCE ONE Diphenhydramine HCl 50 mg 01/07/18 22:38 01/07/18 23:14 Benadryl - PO 01/07/18 22:39 50 mg ONCE ONE Administration Meperidine HCl 75 mg 01/07/18 22:35 01/07/18 23:39 Demerol Injection - IM 01/07/18 22:36 Not Given ONCE ONE Meperidine HCl 50 mg 01/07/18 22:40 01/07/18 23:13 Demerol Injection - IM 01/07/18 22:41 50 mg ONCE ONE Administration Meperidine HCl 50 mg 01/08/18 00:23 01/08/18 00:53 Demerol Injection - IM 01/08/18 00:24 50 mg ONCE ONE Administration Medical Decision Making - Medical Decision Making 01/08/18 01:13 a/p: 47yo female with SCD - follows with hematology at [facility] (has appt in the AM ) with pain crisis -will check labs -pain control 01/08/18 01:14 labs drawn pending pt states she wants to sign out AMA - pain is better and she has an appt in the AM with her doc discussed need to wait for labs for retic count, but pt refusing to stay Note: The patient insists on leaving the emergency dept and is signing out against medical advice. The patient understands the risks and complications that may result from the refusal of medical care and admission which includes and permanent disability. The patient has the mental capacity of understanding the risks of refusing care and is capable of making an informed decision. The patient was instructed to return to the emergency department should she change her mind regarding medical care or should her condition worsen. The patient signed the Against Medical Advice form. *DC/Admit/Observation/Transfer Diagnosis at time of Disposition: Sickle cell crisis UTI (urinary tract infection) Qualifiers: Urinary tract infection type: acute cystitis Hematuria presence: without hematuria Qualified Code(s): N30.00 - Acute cystitis without hematuria - Discharge Dispostion Disposition: AGAINST MEDICAL ADVICE Condition at time of disposition: Unchanged/Unknown Decision to Admit order: No - Prescriptions Prescriptions: Cefuroxime Axetil [Cefuroxime] 500 mg PO BID #20 tablet - Referrals - Patient Instructions Printed Discharge Instructions: DI for Sickle Cell Anemia, Pain Crisis -- Adult Additional Instructions: please follow up in sickle cell clinic tomorrow. take cefuroxime as prescribed. return to the ER if symptoms worsen. - Post Discharge Activity - Attestations Physician Attestion: 01/08/18 01:16 I, Dr. Melina Leslie, DO, attest that this document has been prepared under my direction and personally reviewed by me in its entirety. I further attest, that it accurately reflects all work, treatment, procedures and medical decision -making performed by me.
[2018-01-08 01:28] LABS: INR 1.06 (0.82-1.09)
[2018-01-08 01:29] LABS: BASO % 0.5 % (0-2.0); HEMATOCRIT 20.8 % (32.4-45.2); LYMPH % 16.9 % (8-40); MCH 30.2 pg (25.7-33.7); MCHC 35.2 g/dl (32.0-36.0); MEAN PLT VOLUME 8.4 fl (7.5-11.1); MONO % 8.5 % (3.8-10.2); NEUT % 73.5 % (42.8-82.8); PLATELET COUNT 325 K/MM3 (134-434); RBC 2.42 M/mm3 (3.60-5.2); RDW 24.6 % (11.6-15.6); WHITE BLOOD COUNT 10.6 K/mm3 (4.0-10.0)
[2018-01-08 01:32] LABS: ADD RBC MORPHOLOGY YES; RETICULOCYTES 12.12 % (0.5-1.5)
[2018-01-08 01:36] LABS: ALBUMIN 4.3 g/dl (3.4-5.0); ANION GAP 9 (8-16); BILIRUBIN,TOTAL 4.5 mg/dL (0.2-1.0); BLOOD UREA NITROGEN 7 mg/dL (7-18); CALCIUM 8.6 mg/dL (8.5-10.1); CHLORIDE 104 mmol/L (98-107); CO2 28 mmol/L (21-32); CREATININE 1.1 mg/dL (0.55-1.02); GLUCOSE,RANDOM 190 mg/dL (74-106); POTASSIUM 4.1 mmol/L (3.5-5.1); SGOT/AST 41 U/L (15-37); SGPT/ALT 24 U/L (12-78); SODIUM 141 mmol/L (136-145); TOT PROT 7.7 g/dl (6.4-8.2)
[2018-01-08 01:39] LABS: ALK PHOS 82 U/L (45-117)
[2018-01-08 11:57] LABS: ANISOCYTOSIS 2+; MACROCYTOSIS 1+; OVALOCYTE 1+; TARGET CELLS 1+
--- NOTE | 2018-01-10 07:54 | PDOC ---
Patient Follow-up (Call Back) - Post ED Follow - Up Condition at time of discharge: Unchanged/Unknown Disposition at time of original discharge: AGAINST MEDICAL ADVICE Reason for Call Back: Abnwl. Microbiology (Urine culture on preliminary report shows lactose fermenting negative bacilli. Patient on Keflex. Will await final report.)
--- NOTE | 2018-01-12 10:17 | PDOC ---
Patient Follow-up (Call Back) - Post ED Follow - Up Condition at time of discharge: Unchanged/Unknown Disposition at time of original discharge: AGAINST MEDICAL ADVICE Reason for Call Back: Abnwl. Microbiology (Urine culture shows e. coli sensitive to keflex. No further treatment needed at this time)
== END 2018-01-08 01:29 | disposition left against medical advice (07) ==
LOC: JER 21:56
PROC: 3E023GC Introduction of Other Therapeutic Substance into Muscle, Percutaneous Approach (ICD-10-PCS; principal; 2018-01-07)
PROC: 3E023NZ Introduction of Analgesics, Hypnotics, Sedatives into Muscle, Percutaneous Approach (ICD-10-PCS; 2018-01-07)
DX: D57.00 Hb-SS disease with crisis, unspecified (principal); N30.00 Acute cystitis without hematuria
CPT/HCPCS: 36415; 80053; 81003; 81015; 82550; 83021; 84484; 84703; 85025; 85044; 85610; 85660; 86850; 86870; 86900; 86901; 86902; 87086; 87186; 99284-25

== ENCOUNTER 2018-01-19 08:39 | Emergency (ER) | payer OTHER ==
[2018-01-19 08:51] VITALS: TEMP 98.1; BMI 27.8
[2018-01-19] MEDS ORDERED: MEPERIDINE HCL 50 MG TABLET PO ONE (09:39)
[2018-01-19] MEDS ORDERED: diphenhydrAMINE HCL 25 MG CAPSULE (FP) PO ONE ×2 (09:40→09:42)
[2018-01-19] MEDS ORDERED: HYDROmorphone HCL 2 MG TABLET ONE (09:41)
--- NOTE | 2018-01-19 10:20 | PDOC ---
History of Present Illness - General History Source: Patient Exam Limitations: No Limitations - History of Present Illness Initial Comments: 01/19/18 10:29 The patient is a 47 year old female, with a significant past medical history of sickle cell anemia (with multiple visits to the ED requesting pain management) and multiple blood transfusions, who presents to the emergency department with bilateral lower extremity pain since earlier today. Patient reports her pain is nonradiating and typical of her sickle cell crisis. Patient reports the heat triggers her pain. Patient states she was here earlier this month for bilateral leg pain, where she was given Demerol for her symptoms with moderate relief. Today, patient denies any chest pain, shortness of breath, diaphoresis, palpitations, or lower extremity edema. She denies any fever, chills, cough, headache, or dizziness. She denies any abdominal pain, nausea, vomiting, diarrhea, constipation, or changes in bowel/bladder habits. She denies any recent travel or sick contacts. Allergies: Morphine(itching) Past Surgical History: Cholecystectomy Family History: Sickle Cell(Mother) Social History: Non smoker. No ETOH or recreational drug use. <Reyna Beltran - Last Filed: 01/19/18 10:29> - General History Source: Patient Exam Limitations: No Limitations <Kalani Lopes - Last Filed: 01/19/18 12:18> - General Chief Complaint: Sickle Cell Crisis Stated Complaint: SICKLE CELL CRISIS Time Seen by Provider: 01/19/18 09:12 Past History <Reyna Beltran - Last Filed: 01/19/18 10:29> - Past Medical History Anemia: Yes (SICKLE CELL) Asthma: No Cancer: No Cardiac Disorders: No CVA: No COPD: No CHF: No DVT: No Dementia: No Diabetes: No GI Disorders: No Disorders: No HTN: No Hypercholesterolemia: No Liver Disease: No Seizures: No Thyroid Disease: No - Surgical History Abdominal Surgery: Yes Cholecystectomy: Yes - Family Disease History Family Disease History: Other: Mother (Sickle cell) - Immunization History Td Vaccination: Yes TDAP Vaccination: Yes Immunization Up to Date: Yes - Suicide/Smoking/Psychosocial Hx Smoking Status: No Smoking History: Never smoked Years of Tobacco Use: 0 Have you smoked in the past 12 months: No Number of Cigarettes Smoked Daily: 0 Cigars Per Day: 0 Hx Alcohol Use: No Drug/Substance Use Hx: No Substance Use Type: None Hx Substance Use Treatment: No <Kalani Lopes - Last Filed: 01/19/18 12:18> - Past Medical History Allergies/Adverse Reactions: Allergies Allergy/AdvReac Type Severity Reaction Status Date / Time morphine Allergy Severe ANAPHYLAXIS, Verified 01/19/18 08:47 HIVES Home Medications: Ambulatory Orders Oxycodone HCl 90 mg PO Q4H 11/15/17 Review of Systems - Review of Systems Able to Perform ROS?: Yes Comments:: 01/19/18 10:30 GENERAL/CONSTITUTIONAL: No fever or chills. No weakness. HEAD, EYES, EARS, NOSE AND THROAT: No change in vision. No ear pain or discharge. No sore throat. CARDIOVASCULAR: No chest pain or shortness of breath. RESPIRATORY: No cough, wheezing, or hemoptysis. GASTROINTESTINAL: No nausea, vomiting, diarrhea or constipation. GENITOURINARY: No dysuria, frequency, or change in urination. MUSCULOSKELETAL: +Bilateral lower extremity pain. No joint or muscle swelling. No neck or back pain. SKIN: No rash NEUROLOGIC: No headache, vertigo, loss of consciousness, or change in strength/ sensation. ENDOCRINE: No increased thirst. No abnormal weight change. HEMATOLOGIC/LYMPHATIC: No anemia, easy bleeding, or history of blood clots. ALLERGIC/IMMUNOLOGIC: No hives or skin allergy. <Reyna Beltran - Last Filed: 01/19/18 10:29> *Physical Exam - Vital Signs Last Vital Signs Temp Pulse Resp BP Pulse Ox 98.1 F 82 19 108/67 95 01/19/18 08:47 01/19/18 08:47 01/19/18 08:47 01/19/18 08:47 01/19/18 08:47 - Physical Exam Comments: 01/19/18 10:30 GENERAL: Awake, alert, and fully oriented, in no acute distress HEAD: No signs of trauma EYES: PERRLA, EOMI, sclera anicteric, conjunctiva clear ENT: Auricles normal inspection, hearing grossly normal, nares patent. Moist mucosa NECK: Normal ROM, supple, no lymphadenopathy, JVD, or masses LUNGS: Breath sounds equal, clear to auscultation bilaterally. No wheezes, and no crackles HEART: Regular rate and rhythm, normal S1 and S2, no murmurs, rubs or gallops ABDOMEN: Soft, nontender, normoactive bowel sounds. No guarding, no rebound. No masses EXTREMITIES: Normal range of motion, no edema. No clubbing or cyanosis. No cords, erythema, or tenderness. DP/PT pulses 2+ and symmetric. Warm and well perfused. NEUROLOGICAL: Moves all extremities. Normal speech, normal gait SKIN: Warm, Dry, normal turgor, no rashes or lesions noted. <Reyna Beltran - Last Filed: 01/19/18 10:29> - Vital Signs Last Vital Signs Temp Pulse Resp BP Pulse Ox 98.1 F 82 19 108/67 95 01/19/18 08:47 01/19/18 08:47 01/19/18 08:47 01/19/18 08:47 01/19/18 08:47 <Kalani Lopes - Last Filed: 01/19/18 12:18> ED Treatment Course - Medications Given in the ED: ED Medications Discontinued Medications Generic Name Dose Route Start Last Admin Trade Name Freq PRN Reason Stop Dose Admin Diphenhydramine HCl 50 mg 01/19/18 09:40 01/19/18 09:45 Benadryl - PO 01/19/18 09:41 50 mg ONCE ONE Administration Hydromorphone HCl 4 mg 01/19/18 09:39 01/19/18 09:45 Dilaudid - PO 01/19/18 09:40 4 mg ONCE ONE Administration <Reyna Beltran - Last Filed: 01/19/18 10:29> - LABORATORY CBC & Chemistry Diagram: 01/19/18 10:26 01/19/18 10:26 - Medications Given in the ED: ED Medications Discontinued Medications Generic Name Dose Route Start Last Admin Trade Name Freq PRN Reason Stop Dose Admin Diphenhydramine HCl 50 mg 01/19/18 09:40 01/19/18 09:45 Benadryl - PO 01/19/18 09:41 50 mg ONCE ONE Administration Hydromorphone HCl 4 mg 01/19/18 09:39 01/19/18 09:45 Dilaudid - PO 01/19/18 09:40 4 mg ONCE ONE Administration <Kalani Lopes - Last Filed: 01/19/18 12:18> Medical Decision Making - Medical Decision Making 01/19/18 10:31 [id number] a history of sickle cell here today in acute pain crisis. Differential includes dehydration anemia no swelling or edema present. Plan baseline labs and pain control patient is requesting IV Dilaudid however he does not have this we'll give her oral Dilaudid and reassess as well as oral hydration reassess for disposition 01/19/18 12:17 pt feels improved after two doses of demerol. labs baseline anemia, . will dc home. followup with assembly inspector. <Kalani Lopes - Last Filed: 01/19/18 12:18> *DC/Admit/Observation/Transfer - Attestations Scribe Attestion: 01/19/18 10:30 Documentation prepared by Reyna Beltran, acting as medical art therapist for Kalani Lopes MD. <Reyna Beltran - Last Filed: 01/19/18 10:29> - Attestations Physician Attestion: 01/19/18 10:20 I, Dr. Kalani Lopes MD, attest that this document has been prepared under my direction and personally reviewed by me in its entirety. I further attest, that it accurately reflects all work, treatment, procedures and medical decision -making performed by me. <Kalani Lopes - Last Filed: 01/19/18 12:18> Diagnosis at time of Disposition: Sickle cell pain crisis - Discharge Dispostion Disposition: HOME Condition at time of disposition: Improved - Patient Instructions Printed Discharge Instructions: DI for Sickle Cell Anemia, Pain Crisis -- Adult Additional Instructions: you should follow up with your assembly inspector. call to schedule. return for any problems or concerns. drink plenty of fluids, stay out of hot sun.
[2018-01-19] MEDS ORDERED: MEPERIDINE HCL CARPU-JECT 50 MG/1 ML DISP.SYRIN IM ONE ×2 (10:58→12:08)
[2018-01-19] MEDS ORDERED: MEPERIDINE HCL CARPU-JECT 50 MG/1 ML DISP.SYRIN ONE ×2 (10:59→12:08)
[2018-01-19 11:07] LABS: BASO % 0.9 % (0-2.0); EOS % 0.7 % (0-4.5); HEMATOCRIT 21.6 % (32.4-45.2); HEMOGLOBIN 7.5 GM/dL (10.7-15.3); LYMPH % 34.4 % (8-40); MCH 30.2 pg (25.7-33.7); MCHC 34.9 g/dl (32.0-36.0); MEAN CELL VOLUME 86.7 fl (80-96); MEAN PLT VOLUME 8.4 fl (7.5-11.1); MONO % 7.8 % (3.8-10.2); NEUT % 56.2 % (42.8-82.8); PLATELET COUNT 355 K/MM3 (134-434); RBC 2.49 M/mm3 (3.60-5.2); RDW 23.3 % (11.6-15.6); WHITE BLOOD COUNT 7.7 K/mm3 (4.0-10.0)
[2018-01-19 11:17] LABS: ANION GAP 7 (8-16); BILIRUBIN,TOTAL 4.6 mg/dL (0.2-1.0); BLOOD UREA NITROGEN 6 mg/dL (7-18); CALCIUM 8.8 mg/dL (8.5-10.1); CHLORIDE 104 mmol/L (98-107); CO2 28 mmol/L (21-32); CREATININE 0.8 mg/dL (0.55-1.02); GLUCOSE,RANDOM 143 mg/dL (74-106); POTASSIUM 3.6 mmol/L (3.5-5.1); SGOT/AST 30 U/L (15-37); SGPT/ALT 17 U/L (12-78); SODIUM 139 mmol/L (136-145); TOT PROT 7.5 g/dl (6.4-8.2)
[2018-01-19 11:18] LABS: ALK PHOS 75 U/L (45-117)
[2018-01-19 12:12] VITALS: BP 110/61; PULSE 74
[2018-01-19 22:04] LABS: ANISOCYTOSIS 3+; HOWELL-JOLLY BODIES FEW; OVALOCYTE 1+; PLATELET ESTIMATE ADEQUATE; SICKELED CELLS 2+; TARGET CELLS 1+
== END 2018-01-19 12:37 | disposition home or self-care (01) ==
LOC: JER 08:39
PROC: 3E023NZ Introduction of Analgesics, Hypnotics, Sedatives into Muscle, Percutaneous Approach (ICD-10-PCS; principal; 2018-01-19)
PROC: 3E023NZ Introduction of Analgesics, Hypnotics, Sedatives into Muscle, Percutaneous Approach (ICD-10-PCS; 2018-01-19)
DX: D57.00 Hb-SS disease with crisis, unspecified (principal); Z90.49 Acquired absence of other specified parts of digestive tract; Z88.8 Allergy status to other drugs, medicaments and biological substances
CPT/HCPCS: 36415; 80053; 85025; 85044; 96372; 99282-25

== ENCOUNTER 2018-02-09 08:41 | Emergency (ER) | payer OTHER ==
[2018-02-09 08:49] VITALS: TEMP 98.4; BMI 26.6
--- NOTE | 2018-02-09 10:31 | PDOC ---
History of Present Illness - General Chief Complaint: Sickle Cell Crisis Stated Complaint: SICKLE CELL CRISIS Time Seen by Provider: 02/09/18 09:23 History Source: Patient Exam Limitations: No Limitations - History of Present Illness Initial Comments: 02/09/18 10:31 47 YOF with PMH of sickle cell disease (UTD on all immunizations, never had acute chest syndrome or aplastic crisis), frequent pain crisis (BLE pain) triggered by heat, bilateral hip avascular necrosis, left hip replacement, multiple blood transfusions, chronic anemia, cholecystectomy, and HTN presents with bilateral Upper and lower entremity back and chest pain since this morning. Previous visit was 4 days ago, asking for pain medication. Describe pain as classic sickle cell crisis, takes Oxycodon at home which had no effect this morning. Asking for 75mg Demerol IM or Dilaudid. 02/09/18 11:48 Claims that she used to be on hydroxyurea but it "makes her feel nauseous" Past History - Past Medical History Allergies/Adverse Reactions: Allergies Allergy/AdvReac Type Severity Reaction Status Date / Time morphine Allergy Severe ANAPHYLAXIS, Verified 02/09/18 08:45 HIVES Home Medications: Ambulatory Orders Oxycodone HCl 90 mg PO Q4H 11/15/17 Anemia: Yes (SICKLE CELL) Asthma: No Cancer: No Cardiac Disorders: No CVA: No COPD: No CHF: No DVT: No Dementia: No Diabetes: No GI Disorders: No Disorders: No HTN: No Hypercholesterolemia: No Liver Disease: No Seizures: No Thyroid Disease: No - Surgical History Abdominal Surgery: Yes Cholecystectomy: Yes - Family Disease History Family Disease History: Other: Mother (Sickle cell) - Immunization History Td Vaccination: Yes TDAP Vaccination: Yes Immunization Up to Date: Yes - Suicide/Smoking/Psychosocial Hx Smoking Status: No Smoking History: Unknown if ever smoked Years of Tobacco Use: 0 Have you smoked in the past 12 months: No Number of Cigarettes Smoked Daily: 0 Cigars Per Day: 0 Hx Alcohol Use: No Drug/Substance Use Hx: No Substance Use Type: None Hx Substance Use Treatment: No *Physical Exam - Vital Signs Last Vital Signs Temp Pulse Resp BP Pulse Ox 98.4 F 90 19 145/78 96 02/09/18 08:45 02/09/18 08:45 02/09/18 08:45 02/09/18 08:45 02/09/18 08:45 - Physical Exam General Appearance: Yes: Nourished, Appropriately Dressed. No: Apparent Distress HEENT: positive: EOMI, MICHEAL, Normal ENT Inspection Respiratory/Chest: positive: Lungs Clear, Normal Breath Sounds. negative: Chest Tender, Respiratory Distress Cardiovascular: positive: Regular Rhythm, Regular Rate, S1, S2 Gastrointestinal/Abdominal: positive: Normal Bowel Sounds, Flat, Soft. negative : Tender Extremity: positive: Normal Capillary Refill, Normal Inspection, Normal Range of Motion Integumentary: positive: Normal Color, Dry, Warm Neurologic: positive: Fully Oriented, Alert, Normal Mood/Affect ED Treatment Course - RADIOLOGY Radiology Studies Ordered: Category Date Time Status CHEST PA & LAT [RAD] Stat Radiology 02/09/18 09:55 Ordered Medical Decision Making - Medical Decision Making 02/09/18 11:46 Patient was here a few days ago. Will give PO dilaudid bendaryl and Ketorolac. *DC/Admit/Observation/Transfer Diagnosis at time of Disposition: Chronic pain - Discharge Dispostion Disposition: HOME Condition at time of disposition: Improved Decision to Admit order: No - Referrals Referrals: Michael Mcconnell MD [Staff Physician] - - Patient Instructions Printed Discharge Instructions: DI for Sickle Cell Anemia, Pain Crisis -- Adult Additional Instructions: Follow up with the clinic within the week. Come back to the Emergency department for any new, worsening or concerning symptom. - Post Discharge Activity
[2018-02-09] MEDS ORDERED: KETOROLAC TROMETHAMINE 30 MG/1 ML VIAL IM ONE (10:53)
[2018-02-09] MEDS ORDERED: KETOROLAC TROMETHAMINE 30 MG/1 ML VIAL ONE (10:56)
[2018-02-09] MEDS ORDERED: HYDROmorphone HCL 2 MG TABLET ONE (10:56)
[2018-02-09 11:12] LABS: URINE COLOR YELLOW
--- NOTE | 2018-02-09 11:12 | PDOC ---
Attending Attestation - Resident Resident Name: Seth Albrecht - ED Attending Attestation I have performed the following: I have examined & evaluated the patient, The case was reviewed & discussed with the resident, I agree w/resident's findings & plan, Exceptions are as noted - HPI HPI: 02/09/18 11:02 47-year-old female with past medical history of sickle cell disease with frequent sickle cell crisis presents with sickle cell crisis pain. The patient reports that the quality pain is similar to her last visit. States that she's been taking oxycodone home with minimal relief. She does not know what sets off her sickle cell crisis pain. The patient is requesting 75 mg of IM Demerol and IM Benadryl for pain control. She denies any chest pain. - Physicial Exam PE: 02/09/18 11:12 GENERAL: Awake, alert, and fully oriented, in no acute distress. HEAD: No signs of trauma EYES: EOMI ENT: Auricles normal inspection, hearing grossly normal, nares patent EXTREMITIES: Normal range of motion, no edema. No clubbing or cyanosis. No cords, erythema, or tenderness NEUROLOGICAL: Cranial nerves II through XII grossly intact. Normal speech, normal gait SKIN: Warm, Dry, normal turgor, no rashes or lesions noted. - Medical Decision Making 02/09/18 11:12 Vital Signs Temp Pulse Resp BP Pulse Ox 98.4 F 90 19 145/78 96 02/09/18 08:45 02/09/18 08:45 02/09/18 08:45 02/09/18 08:45 02/09/18 08:45 Patient with frequent ED visits for sickle cell crisis pain with VOC. Pain control and follow-up with her master barber.
[2018-02-09 11:13] LABS: PH,URINE 7.5 (4.5-8); URINE APPEARANCE CLEAR; URINE BILIRUBIN NEGATIVE (NEGATIVE); URINE GLUCOSE (UA) NEGATIVE (NEGATIVE); URINE KETONE NEGATIVE (NEGATIVE); URINE LEUK ESTERASE TRACE (NEGATIVE); URINE NITRITE NEGATIVE (NEGATIVE); URINE UROBILINOGEN 4.0 E.U/dl (0.2-1.0)
--- NOTE | 2018-02-09 11:30 | PDOC ---
Patient Follow-up (Call Back) - Post ED Follow - Up Reason for Call Back: Abnwl. Microbiology (+ecoli on ucx, sen to macrobid and keflex Pt not on abx, h/o SCD called multiple times but phone does not ring and no VM set up)
[2018-02-09 12:11] VITALS: BP 138/74; PULSE 88
[2018-02-09 14:04] LABS: EPI CELLS RARE /HPF (FEW); URINE BACTERIA RARE /hpf (NONE SEEN); URINE WBC 20-40 /hpf (3-5)
--- NOTE | 2018-02-10 08:24 | PDOC ---
Patient Follow-up (Call Back) - Post ED Follow - Up Condition at time of discharge: Improved Disposition at time of original discharge: HOME Reason for Call Back: Abnwl. Microbiology (Patient urine culture shows Escherichia coli. Patient ordered for Macrobid which was sent to [facility]. I spoke with patient and states she will pick it up later on today.)
== END 2018-02-09 12:11 | disposition home or self-care (01) ==
LOC: JER 08:41
PROC: 3E023GC Introduction of Other Therapeutic Substance into Muscle, Percutaneous Approach (ICD-10-PCS; principal; 2018-02-09)
PROC: 3E0233Z Introduction of Anti-inflammatory into Muscle, Percutaneous Approach (ICD-10-PCS; 2018-02-09)
DX: R52 Pain, unspecified (principal); D57.1 Sickle-cell disease without crisis; Z96.642 Presence of left artificial hip joint
CPT/HCPCS: 71046-TC-FY; 81003; 81015; 84703; 96372; 99283-25